=== PATIENT | female | born 1980 | race Caucasian/White ===

== ENCOUNTER → 2016-07-13 | Emergency (ER) | payer SELFPAY | END | disposition left against medical advice (07) | LOC: EDUNIT# 16:30 → ER 16:31 | DX: R20.2 Paresthesia of skin (principal); Z53.21 Procedure and treatment not carried out due to patient leaving prior to being seen by health care provider ==

== ENCOUNTER → 2016-08-04 | Outpatient (CLI) | payer OTHER ==
--- NOTE | 2016-08-04 13:55 | Diagnostic Imaging Report ---
PROCEDURE: MRI lumbar spine. TECHNIQUE: Multiplanar, multisequence MRI of the lumbar spine was performed without contrast. INDICATION: Right thigh numbness for two months with intermittent low back pain, no known injury. COMPARISON: None. DISCUSSION: The vertebral bodies of the lumbar spine are normal in stature, alignment, and signal intensity. The conus medullaris is normal in position and morphology. The nerve roots of the cauda equina are unremarkable. No significant facet arthropathy is identified at any level. There is mild degenerative disc disease noted at the L4-L5 and L5-S1 levels. Minimal diffuse disc bulges are also present at these 2 levels. Small annular tears noted at the L5-S1 level. There is no central canal stenosis or neuroforaminal narrowing identified at any level. Paraspinal soft tissues are unremarkable. IMPRESSION: 1. Mild degenerative disc disease noted at the L4-L5 and L5-S1 levels. No central canal or neuroforaminal stenosis identified at any level. 2. Small annular tear at the L5-S1 level. Dictated by: Dictated on workstation # [id number]
== END ==
LOC: RAD 12:43
PROVIDERS: ATTEND Nurse Practitioner
DX: M51.37 Other intervertebral disc degeneration, lumbosacral region (principal)
CPT/HCPCS: 72148

== ENCOUNTER 2017-10-16 19:53 | Emergency (ER) | payer OTHER ==
[~2017-10-16] VITALS: Ht 177.8 cm; Wt 104.3 kg
[2017-10-16] MEDS ORDERED: KETOROLAC 60 MG/2 ML VIAL IM STA (20:12)
--- NOTE | 2017-10-16 20:44 | ED Lower Extremity ---
General Chief Complaint: Lower Extremity Stated Complaint: L KNEE PAIN Source: patient Exam Limitations: no limitations History of Present Illness Date Seen by Provider: Oct 16, 2017 Time Seen by Provider: 20:08 Initial Comments Here with complaint of left knee pain. Has sciatica on the right hand was shifting of weight from the right side to the left side to help reduce the pain on the right when her knee went lateral and she had significant pain. Has some swelling and pain when standing. She was able to complete her shift at [employer] but is having some difficulty with standing. She did take 600 mg of ibuprofen about 6 hours ago. Denies other injury or fall. Onset: this morning Severity: moderate Pain/Injury Location: left knee Method of Injury: twisted Modifying Factors: Improves With Immobilization; Worse With Movement; Improves With Pain Medication Allergies and Home Medications Allergies Coded Allergies: morphine (Verified Allergy, Unknown, 10/16/17) Patient Home Medication List Home Medication List Reviewed: Yes Constitutional: no symptoms reported Respiratory: no symptoms reported Cardiovascular: no symptoms reported Musculoskeletal: see HPI, joint pain, joint swelling, muscle pain Skin: no symptoms reported Psychiatric/Neurological: No Symptoms Reported Past Cdmqyde-Zoegzl-Alqzdg Hx Past Med/Social Hx: Reviewed Nursing Past Med/Soc Hx Patient Social History Alcohol Use: Denies Use Recreational Drug Use: No Smoking Status: Current Everyday Smoker Recent Foreign Travel: No Contact w/Someone Who Travel: No Past Medical History Surgeries: Yes Section, Hysterectomy, Orthopedic Respiratory: No Cardiac: Yes Hypertension Neurological: No Musculoskeletal: Yes Family Medical History No Pertinent Family Hx Physical Exam Vital Signs Capillary Refill : Height, Weight, BMI Height: '" Weight: lbs. oz. kg; BMI Method: General Appearance: WD/WN, no apparent distress Cardiovascular: regular rate, rhythm, no murmur Respiratory: lungs clear, normal breath sounds Knees: right knee non-tender, right knee normal inspection, right knee normal range of motion; left knee joint effusion (small anterior lateral), left knee pain, left knee soft tissue tenderness, left knee other (negative drawer or medial or lateral laxity. Pain on range of motion) Ankles: bilateral ankle non-tender, bilateral ankle normal inspection, bilateral ankle normal range of motion Neurologic/Psychiatric: alert, oriented x 3 Skin: normal color, warm/dry Progress/Results/Core Measures Results/Orders My Orders Orders - EDY NORWOOD MD Knee, Left, 3 Views (7/14/18 20:12) Ketorolac Injection (Toradol Injection) (10/16/17 20:12) Jono Bandage (10/16/17 20:12) Crutches (10/16/17 20:12) Progress Progress Note : Progress Note Seen and evaluated. X-ray left knee. Toradol 60 mg IM, Jono wrap and ice pack applied. Crutches given. No acute fractures on x-ray but there is effusion which was also noted on exam. We discussed conservative therapy which she will try. Discharged home with return precautions. Patient verbalize understanding instructions and agreement with plan. Diagnostic Imaging Diagonstic Imaging: Xray Plain Films/CT/US/NM/MRI: knee Comments [place] NAME: NEELAM MEEK [facility] REC#: [id number] PT STATUS: REG ER : 1980 PHYSICIAN: EDY NORWOOD MD ADMIT DATE: 10/16/17/ER Draft Date of Exam:10/16/17 KNEE, LEFT, 3 VIEWS Clinical indication: Patient with knee pain. Patient was standing and left knee gave out. Exam: X-ray of the left knee, 3 views. Comparison: X-ray of the left knee dated 05/20/2015. Findings: There is no evidence of acute fracture or dislocation. There is progression of moderately hypertrophic spurs involving the medial compartment and mild to moderate patellofemoral compartment spurs. Again seen spurring of the tibial tuberosity. There is minimal knee effusion/swelling seen. Impression: 1: There is no acute fracture or dislocation. There is minimal knee effusion/swelling seen. 2: Interval progression of left knee degenerative disease. Dictated on workstation # [id number] Dict: 10/16/172102 Trans: 10/16/17 [address] [facility] [id number] Interpreted by: CHAVA GREWAL MD Electronically signed by: Departure Impression Primary Impression: Internal derangement of left knee Additional Impression: Effusion, left knee Disposition: 01 HOME, SELF-CARE Condition: Stable Departure-Patient Inst. Decision time for Depature: 21:24 Referrals: THI COLORADO MD (PCP/Family) Primary Care Physician Patient Instructions: Knee Sprain (DC) Add. Discharge Instructions: All discharge instructions reviewed with patient and/or family. Voiced understanding. Use Jono wrap and crutches as needed for this next several days. Use ice pack 20 minutes per hour as needed for swelling or pain. Elevate the leg. You may take ibuprofen 800 mg every 8 hours as needed for pain. You may take Tylenol/ acetaminophen 1000 mg every 8 hours as needed for pain. Follow-up with the orthopedist this week for recheck and further evaluation. Metacarpal return for worse pain, swelling, weakness or other concerns as needed. Work/School Note: Work Release Form Date Seen in the Emergency Department: Oct 16, 2017 Return to Work: Oct 18, 2017 Restrictions: No Restrictions EDY NORWOOD MD Oct 16, 2017 20:44
--- NOTE | 2017-10-16 21:14 | Diagnostic Imaging Report ---
Clinical indication: Patient with knee pain. Patient was standing and left knee gave out. Exam: X-ray of the left knee, 3 views. Comparison: X-ray of the left knee dated 05/20/2015. Findings: There is no evidence of acute fracture or dislocation. There is progression of moderately hypertrophic spurs involving the medial compartment and mild to moderate patellofemoral compartment spurs. Again seen spurring of the tibial tuberosity. There is minimal knee effusion/swelling seen. Impression: 1: There is no acute fracture or dislocation. There is minimal knee effusion/swelling seen. 2: Interval progression of left knee degenerative disease. Dictated by: Dictated on workstation # [id number]
[2017-10-16 21:35] VITALS: BP 148/101
== END 2017-10-16 21:36 | disposition home or self-care (01) ==
LOC: EDUNIT# 19:53 → ER 19:55
DX: M23.92 Unspecified internal derangement of left knee (principal); M25.462 Effusion, left knee; F17.200 Nicotine dependence, unspecified, uncomplicated; I10 Essential (primary) hypertension; Z88.5 Allergy status to narcotic agent; Z90.710 Acquired absence of both cervix and uterus; Z87.59 Personal history of other complications of pregnancy, childbirth and the puerperium
CPT/HCPCS: 73562; 96372

== ENCOUNTER 2017-12-13 15:57 | Outpatient (RCR) | payer OTHER | END 2017-12-27 14:03 | disposition home or self-care (01) | PROVIDERS: ATTEND Nurse Practitioner Family | DX: M17.12 Unilateral primary osteoarthritis, left knee (principal); M23.8X2 Other internal derangements of left knee; I10 Essential (primary) hypertension; F32.9 Major depressive disorder, single episode, unspecified; F41.9 Anxiety disorder, unspecified ==

== ENCOUNTER 2020-08-27 10:47 | Emergency (ER) | payer OTHER ==
[~2020-08-27] VITALS: Ht 177.8 cm; Wt 103.0 kg
--- NOTE | 2020-08-27 11:02 | ED Chest Pain ---
General Chief Complaint: Chest Pain Stated Complaint: CP Source: patient, EMS History of Present Illness Date Seen by Provider: August 27, 2020 Time Seen by Provider: 10:45 Initial Comments Patient is a 39-year-old female who presents to the emergency department today with a chief complaint of midsternal chest burning and discomfort. Onset around 9:00 while she was at work today. Patient states that she started feeling "hot and sweaty and lightheaded" she drank some Powerade. Patient states that the pain did not radiate and nothing made it any worse. Patient states that she went to [facility] for evaluation and was told that she had a "abnormal EKG" and sent to the emergency room for further evaluation. Per review of the EKG she had a long QT interval but with sinus rhythm without signs of ectopy, ST segment elevation or depression. She does have a Q-wave in lead III. Patient's EKG here in the department with us shows a QT interval of 453. No significant lengthening of this interval. Patient continues to have a little bit of midsternal chest discomfort. She states she was seen in [facility] on Wednesday, 3 days ago (for similar symptoms) and was also told that she had a little bit of an abnormal EKG. She was advised to stop taking Zofran and her Lexapro as the physician felt like these were causing the problem. Patient states she did discontinue these medications. She is quite tearful and anxious. She is going through a large move currently she recently suffered the unexpected of a coworker and she has had multiple other stressors contributing to her anxiety and depression. She denies recent fevers, chills, cough or congestion. She has had some intermittent right upper quadrant abdominal pain. This has been associated with nausea and vomiting as well. No other bowel or bladder complaints. No significant family history of coronary artery disease. All other review of systems reviewed and negative except as stated above. Timing/Duration: 1-3 hours Severity/Quality: moderate, burning Radiation: no radiation Activities at Onset: activity Associated Symptoms: nausea/vomiting Allergies and Home Medications Allergies Coded Allergies: morphine (Verified Allergy, Unknown, 10/16/17) Home Medications Dicyclomine HCl 20 Mg Tablet, 20 MG PO Q6H PRN for abdominal cramping and pain Prescribed by: MARTA ALVARADO on 08/27/20 1222 Patient Home Medication List Home Medication List Reviewed: Yes Review of Systems Review of Systems Constitutional: see HPI EENTM: No Symptoms Reported Respiratory: No Symptoms Reported Cardiovascular: Chest Pain Gastrointestinal: Abdominal Pain (Right upper quadrant), Nausea, Vomiting Genitourinary: No Symptoms Reported Musculoskeletal: no symptoms reported Skin: no symptoms reported Psychiatric/Neurological: Anxiety, Depressed All Other Systems Reviewed Negative Unless Noted: Yes Past Sbpbtkq-Cilbwy-Pmxukf Hx Patient Social History Type Used: Cigarettes Recent Hopitalizations: No Seasonal Allergies Seasonal Allergies: No Past Medical History Surgeries: Yes Section, Hysterectomy, Orthopedic Respiratory: No Cardiac: Yes Hypertension 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 oz. 104.627979gf; BMI Method:Estimated General Appearance: No Apparent Distress, WD/WN (Tearful), Anxious HEENT: PERRL/EOMI Neck: Normal Inspection Respiratory: Lungs Clear, Normal Breath Sounds, No Accessory Muscle Use, No R espiratory Distress Cardiovascular: Regular Rate, Rhythm, Normal Peripheral Pulses Gastrointestinal: Normal Bowel Sounds, Non Tender, Soft, Tenderness (Mild right upper quadrant tenderness to palpation) Extremity: Normal Capillary Refill, Normal Inspection, Normal Range of Motion, Non Tender, No Calf Tenderness Neurologic/Psychiatric: Alert, Oriented x3, Normal Mood/Affect, Depressed Affect (Tearful) Skin: Normal Color, Warm/Dry Progress/Results/Core Measures Results/Orders Lab Results Laboratory Tests Test 08/27/20 10:48 Range/Units White Blood Count 9.8 4.3-11.0 10^3/uL Red Blood Count 4.08 3.80-5.11 10^6/uL Hemoglobin 12.7 11.5-16.0 g/dL Hematocrit 37 35-52 % Mean Corpuscular Volume 91 80-99 fL Mean Corpuscular Hemoglobin 31 25-34 pg Mean Corpuscular Hemoglobin Concent 34 32-36 g/dL Red Cell Distribution Width 12.9 10.0-14.5 % Platelet Count 247 130-400 10^3/uL Mean Platelet Volume 10.4 9.0-12.2 fL Immature Granulocyte % (Auto) 0 % Neutrophils (%) (Auto) 63 42-75 % Lymphocytes (%) (Auto) 30 12-44 % Monocytes (%) (Auto) 6 0-12 % Eosinophils (%) (Auto) 1 0-10 % Basophils (%) (Auto) 0 0-10 % Neutrophils # (Auto) 6.1 1.8-7.8 10^3/uL Lymphocytes # (Auto) 2.9 1.0-4.0 10^3/uL Monocytes # (Auto) 0.6 0.0-1.0 10^3/uL Eosinophils # (Auto) 0.1 0.0-0.3 10^3/uL Basophils # (Auto) 0.0 0.0-0.1 10^3/uL Immature Granulocyte # (Auto) 0.0 0.0-0.1 10^3/uL Sodium Level 138 135-145 MMOL/L Potassium Level 3.4 L 3.6-5.0 MMOL/L Chloride Level 100 98-107 MMOL/L Carbon Dioxide Level 26 21-32 MMOL/L Anion Gap 12 5-14 MMOL/L Blood Urea Nitrogen 11 7-18 MG/DL Creatinine 0.86 0.60-1.30 MG/DL Estimat Glomerular Filtration Rate > 60 BUN/Creatinine Ratio 13 Glucose Level 99 70-105 MG/DL Calcium Level 9.3 8.5-10.1 MG/DL Total Creatine Kinase 187 H 29-168 U/L Creatine Kinase MB 1.7 <6.6 NG/ML Troponin I < 0.028 <0.028 NG/ML My Orders Orders - MARTA ALVARADO MD Cbc With Automated Diff (08/27/20 10:57) Basic Metabolic Panel (08/27/20 10:57) Ekg Tracing (08/27/20 10:57) Ed Iv/Invasive Line Start (08/27/20 10:57) Troponin I (08/27/20 10:57) Creatine Kinase (08/27/20 10:57) Creatine Kinase Mb (08/27/20 10:57) Vital Signs/I&O 08/27/20 10:47 Pulse 70 Resp 18 B/P (MAP) 136/79 (98) Pulse Ox 98 O2 Delivery Room Air Progress Progress Note : Time: 12:16 Progress Note Patient is feeling a little bit better regarding her chest pain. She is still quite tearful and easily upset regarding the stress she has been undergoing in the recent 2 weeks. Labs are unremarkable. EKG does not show prolonged QT at this time. I have recommended for her abdominal pain she take Bentyl with her Carafate. We will send her prescription home with this. I have advised that she can take the Bentyl with the Carafate. She needs to avoid any medications that would prolong her QT interval. The patient is very aware of this. She is going to follow-up with [facility]. All questions are sought and answered. Patient is stable for discharge. Initial ECG Impression Date: August 27, 2020 Initial ECG Impression Time: 10:46 Initial ECG Rate: 66 Initial ECG Rhythm: Normal Sinus Initial ECG Intervals: Normal Initial ECG Intervals IA interval 144 QRS 92 QTc 453 Initial ECG Impression: Normal Comment Q waves in lead III with inverted T wave in lead III, otherwise unremarkable EKG Departure Impression Primary Impression: Chest pain Qualified Codes: R07.9 - Chest pain, unspecified Additional Impressions: Abdominal pain Qualified Codes: R10.11 - Right upper quadrant pain History of prolonged Q-T interval on ECG Disposition: 01 HOME, SELF-CARE Condition: Stable Departure-Patient Inst. Decision time for Depature: 12:19 Referrals: [facility] (PCP/Family) Primary Care Physician Patient Instructions: Chest Pain That Is Not Caused by the Heart (DC), Gallbladder Diet Add. Discharge Instructions: Follow the gallbladder diet as described in your discharge instructions. Avoid fatty foods. Continue to take your Carafate and add the Bentyl 4 times daily before meals as needed for cramping upper abdominal pain. Please follow-up with [facility] regarding the abdominal pain and the prolonged QT on EKG obtained at the clinic. Your EKG was normal with us. Avoid any medications that may prolong the QT interval, always ask your pharmacist about any new medications that you may be prescribed. Return to the emergency room for any return of chest pain, abdominal pain especially associated with shortness of breath, vomiting or any other emergent concerning symptoms Scripts Dicyclomine HCl (Dicyclomine HCl) 20 Mg Tablet 20 MG PO Q6H PRN for abdominal cramping and pain, #30 TAB Prov: MARTA ALVARADO MD 08/27/20 MARTA ALVARADO MD August 27, 2020 11:02
[2020-08-27 11:05] LABS: BASOPHILS % (AUTO) 0 % (0-10); EOSINOPHILS # (AUTO) 0.1 10^3/uL (0.0-0.3); EOSINOPHILS % (AUTO) 1 % (0-10); HEMATOCRIT 37 % (35-52); HEMOGLOBIN 12.7 g/dL (11.5-16.0); LYMPHOCYTES # (AUTO) 2.9 10^3/uL (1.0-4.0); LYMPHOCYTES % (AUTO) 30 % (12-44); MEAN CORPUSCULAR HEMOGLOBIN 31 pg (25-34); MEAN CORPUSCULAR HGB CONC 34 g/dL (32-36); MEAN CORPUSCULAR VOLUME 91 fL (80-99); MEAN PLATELET VOLUME 10.4 fL (9.0-12.2); MONOCYTES # (AUTO) 0.6 10^3/uL (0.0-1.0); MONOCYTES % (AUTO) 6 % (0-12); NEUTROPHILS # (AUTO) 6.1 10^3/uL (1.8-7.8); NEUTROPHILS % (AUTO) 63 % (42-75); PLATELET COUNT 247 10^3/uL (130-400); WHITE BLOOD COUNT 9.8 10^3/uL (4.3-11.0)
[2020-08-27 11:06] LABS: CHLORIDE 100 MMOL/L (98-107); POTASSIUM 3.4 MMOL/L (3.6-5.0); SODIUM 138 MMOL/L (135-145)
[2020-08-27 11:08] LABS: CALCIUM 9.3 MG/DL (8.5-10.1); GLUCOSE 99 MG/DL (70-105)
[2020-08-27 11:10] LABS: CARBON DIOXIDE 26 MMOL/L (21-32)
[2020-08-27 11:12] LABS: CREATININE SERUM 0.86 MG/DL (0.60-1.30); GFR ESTIMATED > 60
[2020-08-27 11:13] LABS: BUN/CREATININE RATIO 13
[2020-08-27 11:15] LABS: CREATINE KINASE 187 U/L (29-168)
[2020-08-27 11:21] LABS: CREATINE KINASE MB 1.7 NG/ML (<6.6)
[2020-08-27] MEDS ORDERED: DICY20TA10 PO (12:22)
[2020-08-27 12:32] VITALS: BP 120/72
== END 2020-08-27 12:45 | disposition home or self-care (01) ==
LOC: EDUNIT# 10:47 → ER 10:48
DX: R07.89 Other chest pain (principal); R10.11 Right upper quadrant pain; I10 Essential (primary) hypertension; Z86.79 Personal history of other diseases of the circulatory system
CPT/HCPCS: 36415; 80048; 82550; 82553; 84484; 85025; 93005